=== PATIENT | male | born 1965 | race African-American/Black ===

== ENCOUNTER 2023-07-24 13:23 | Emergency (ER) | payer SELFPAY ==
[~2023-07-24] VITALS: Ht 172.7 cm; Wt 101.0 kg
[2023-07-24 13:24] VITALS: TEMP 97.8; O2SAT 100
[2023-07-24 14:42] LABS: BASOPHILS % 0.2 % (0.0-2.0); EOSINOPHILS % 0.7 % (0.0-5.0); HEMATOCRIT. 39.9 % (42.0-52.0); HEMOGLOBIN. 13.4 g/dL (14.0-18.0); MEAN CORPUSCULAR HEMOGLOBIN 27.9 pg (28.0-32.0); MEAN CORPUSCULAR HGB CONC 33.7 g/dL (31.0-37.0); MEAN PLATELET VOLUME 8.2 fl (7.4-10.4); MONOCYTES % 6.9 % (2.0-8.0); NEUTROPHILS % 73.2 % (40.0-76.0); PLATELET 234 x1000/uL (130-400); RED BLOOD CELL COUNT 4.81 mill/uL (4.7-6.1); WHITE BLOOD COUNT 8.9 x1000/uL (4.5-11.0)
[2023-07-24 14:51] LABS: PROTHROMBIN TIME 11.4 sec (9.6-11.0)
[2023-07-24 14:57] LABS: ALANINE AMINOTRANSFERASE 21 IU/L (10-49); ASPARTATE AMINOTRANSFERASE 23 IU/L (<34); BILIRUBIN TOTAL 0.8 mg/dL (0.1-1.0); CARBON DIOXIDE 25 mEq/L (21-32); CHLORIDE 108 mEq/L (98-107); CREATININE 1.2 mg/dL (0.6-1.3); GLUCOSE 69 mg/dL (70-105); POTASSIUM 3.9 mEq/L (3.5-5.1); PROTEIN TOTAL 7.2 g/dL (6.0-8.3); SODIUM 141 mEq/L (136-145); TROPONIN I HIGH SENSITIVITY 17 ng/L (3.0-53); UREA NITROGEN BLOOD 12 mg/dL (9-23)
[2023-07-24 15:35] VITALS: BP 138/78; PULSE 99; RESP 14
== END 2023-07-24 15:46 | disposition home or self-care (01) ==
LOC: ER 13:23 → CANBEDREQ 21:24
DX: R00.2 Palpitations (principal)
CPT/HCPCS: 80053; 83880; 85025; 85610; 84484; 36415; 71045; 93005; 99285; Z7610 ×2